=== PATIENT | male | born 1975 | race Caucasian/White ===

== ENCOUNTER 2020-11-20 22:35 | Emergency (ER) | payer SELFPAY ==
[~2020-11-20] VITALS: Ht 177.8 cm; Wt 102.0 kg
[2020-11-20] MEDS ORDERED: MORPHINE SULFATE 4 MG/ML CPJ (NOT FOR IM USE) IV STA (23:49)
[2020-11-20] MEDS ORDERED: ONDANSETRON HCL 4MG/2ML INJ IV STA (23:49)
[2020-11-21] MEDS ORDERED: HYDROCODONE/ACETAMINOPHEN 10/325MG TABLET PO ONE (01:30)
[2020-11-21 01:53] VITALS: BP 135/91
== END 2020-11-21 01:58 | disposition home or self-care (01) ==
LOC: ER 22:35
DX: S82.292A Other fracture of shaft of left tibia, initial encounter for closed fracture (principal); S82.832A Other fracture of upper and lower end of left fibula, initial encounter for closed fracture; W01.198A Fall on same level from slipping, tripping and stumbling with subsequent striking against other object, initial encounter; Y93.89 Activity, other specified; Y92.89 Other specified places as the place of occurrence of the external cause
CPT/HCPCS: 73610; 73630; 93005; 96374; 96375; 99284; J2270; J2405